=== PATIENT | male | born 1980 | race American Indian/Alaskan Native ===

== ENCOUNTER 2021-09-12 23:47 | Emergency (ER) | payer MEDICARE ==
[2021-09-13] MEDS ORDERED: methylPREDNISolone Sod Succinate 125 MG/2 ML INJ IV ONE (00:07)
[2021-09-13] MEDS ORDERED: ACETAMINOPHEN 325 MG TAB PO ONE (00:07)
[2021-09-13] MEDS ORDERED: ALBUTEROL 2.5 MG/3 ML NEBU IH ONE (00:07)
[2021-09-13] MEDS ORDERED: SODIUM CHLORIDE 0.9% 1000 ML 500 ML IV ONE (00:07)
[2021-09-13] MEDS ORDERED: IPRATROPIUM 0.02% NEBU 2.5 ML IH ONE (00:07)
[2021-09-13] MEDS ORDERED: IBUPROFEN 400 MG TAB PO ONE (00:07)
--- NOTE | 2021-09-13 00:09 | Emergency Department Report ---
ED General Adult HPI - General Chief complaint: Dyspnea/Respdistress Stated complaint: ASTHMA ATTACK Time Seen by Provider: 09/13/21 00:02 Source: patient, EMS ( EMS documentation not available at time of chart dictation ), RN notes reviewed Mode of arrival: Stretcher Limitations: No Limitations - History of Present Illness Initial comments: The patient was evaluated in the emergency department for symptoms described in the history of present illness. He/she was evaluated in the context of the global COVID-19 pandemic, which necessitated consideration that the patient might be at risk for infection with the virus that causes COVID-19. Institutional protocols and algorithms that pertain to the evaluation of patients at risk for COVID-19 are in a state of rapid change based on information released by regulatory bodies including the CDC and federal and state organizations. These policies and algorithms were followed during the patient's care in the emergency department. Please note that these policies, procedures and recommendations changed on a rapid basis. This is a pleasant and cooperative 41-year-old gentleman, who is COVID-19 vac cinated without booster, who occasionally consumes marijuana, who also has a history of long-term reactive airways disease, who has never been intubated, who presents to the department today with a complaint of cough, wheezing, chest wall tightness and shortness of breath. Denies travel, surgery, immobilization, DVT and pulmonary embolism risk factors. Has been using albuterol/nebulizer at home with minimal improvement in symptoms. Received albuterol, Atrovent, Tylenol, Motrin and steroids here in the emergency room, which greatly improved his symptoms. Reports chronic chest wall discomfort with coughing, when he gets his reactive airway disease attacks and exacerbations. -: Gradual, days(s) Consistency: constant Improves with: eating Worsens with: movement - Related Data Previous Rx's Medication Instructions Recorded Last Taken Type ALBUTEROL NEB's [Proventil 0.083% 2.5 mg IH TID PRN #1 box 09/13/21 Unknown Rx NEBS] Acetaminophen [Non-Aspirin Extra 500 mg PO Q6HR PRN #30 tablet 09/13/21 Unknown Rx Strength] Albuterol Mdi (or & Nicu Only) 2 puff IH QID PRN #8.5 gram 09/13/21 Unknown Rx [ProAir HFA Inhaler] Ibuprofen [Motrin] 600 mg PO Q8H PRN #30 tablet 09/13/21 Unknown Rx predniSONE [Deltasone] 2 tab PO QDAY 4 Days #8 tab 09/13/21 Unknown Rx Allergies Allergy/AdvReac Type Severity Reaction Status Date / Time No Known Allergies Allergy Unverified 02/06/19 09:15 ED Review of Systems ROS: Stated complaint: ASTHMA ATTACK Other details as noted in HPI Constitutional: denies: fever, malaise, weakness ENT: congestion Respiratory: cough, shortness of breath, wheezing Cardiovascular: other (Chest wall pain with cough). denies: syncope Gastrointestinal: denies: abdominal pain Genitourinary: denies: dysuria Musculoskeletal: denies: back pain Neurological: denies: weakness ED Past Medical Hx - Past Medical History Hx Asthma: Yes - Social History Smoking Status: Never Smoker - Medications Home Medications: Home Medications Medication Instructions Recorded Confirmed Last Taken Type ALBUTEROL NEB's [Proventil 0.083% 2.5 mg IH TID PRN #1 box 09/13/21 Unknown Rx NEBS] Acetaminophen [Non-Aspirin Extra 500 mg PO Q6HR PRN #30 tablet 09/13/21 Unknown Rx Strength] Albuterol Mdi (or & Nicu Only) 2 puff IH QID PRN #8.5 gram 09/13/21 Unknown Rx [ProAir HFA Inhaler] Ibuprofen [Motrin] 600 mg PO Q8H PRN #30 tablet 09/13/21 Unknown Rx predniSONE [Deltasone] 2 tab PO QDAY 4 Days #8 tab 09/13/21 Unknown Rx ED Physical Exam - General Limitations: No Limitations General appearance: alert, in no apparent distress - Head Head exam: Present: atraumatic, normocephalic - Eye Eye exam: Present: normal appearance, EOMI. Absent: nystagmus - ENT ENT exam: Present: normal exam, normal orophraynx, mucous membranes moist, normal external ear exam - Neck Neck exam: Present: normal inspection, full ROM. Absent: tenderness, meningismus - Respiratory Respiratory exam: Present: wheezes, rhonchi, chest wall tenderness - Cardiovascular Cardiovascular Exam: Present: regular rate, normal rhythm, normal heart sounds. Absent: bradycardia, tachycardia, irregular rhythm, systolic murmur, diastolic murmur, rubs, gallop - GI/Abdominal GI/Abdominal exam: Present: soft. Absent: distended, tenderness, guarding, rebound, rigid, pulsatile mass - Rectal Rectal exam: Present: deferred - Extremities Exam Extremities exam: Present: normal inspection, full ROM, normal capillary refill, other (2+ pulses noted in the bilateral upper and lower extremities. There is no palpable cord. negative Homans sign. Muscular compartments are soft. The pelvis is stable.). Absent: pedal edema, calf tenderness - Back Exam Back exam: Present: normal inspection, full ROM. Absent: tenderness, CVA tenderness (R), CVA tenderness (L), paraspinal tenderness, vertebral tenderness - Neurological Exam Neurological exam: Present: alert, oriented X3, normal gait, other (No facial droop. Tongue midline. Extraocular movements intact bilaterally. Facial sensation intact to light touch in V1, V2, V3 distribution bilaterally. 5 and a 5 strength in 4 extremities. Sensation intact to light touch in 4 extremities.). Absent: motor sensory deficit - Psychiatric Psychiatric exam: Present: normal affect, normal mood - Skin Skin exam: Present: warm, dry, intact, normal color. Absent: rash ED Course Vital Signs 09/13/21 09/13/21 09/13/21 00:03 00:15 00:31 Temperature Pulse Rate 69 59 L Pulse Rate [ Bilateral Throughout] Respiratory 15 19 Rate Respiratory Rate [Bilateral Throughout] Blood Pressure [Right] O2 Sat by Pulse 99 98 100 Oximetry O2 Sat by Pulse Oximetry [ Digit-Finger] 09/13/21 09/13/21 09/13/21 00:45 01:01 01:15 Temperature Pulse Rate 64 88 64 Pulse Rate [ Bilateral Throughout] Respiratory 16 23 20 Rate Respiratory Rate [Bilateral Throughout] Blood Pressure [Right] O2 Sat by Pulse 100 97 100 Oximetry O2 Sat by Pulse Oximetry [ Digit-Finger] 09/13/21 09/13/21 09/13/21 01:21 01:31 01:38 Temperature Pulse Rate 74 70 Pulse Rate [ 96 H Bilateral Throughout] Respiratory 13 16 Rate Respiratory 22 Rate [Bilateral Throughout] Blood Pressure 148/78 [Right] O2 Sat by Pulse 99 98 Oximetry O2 Sat by Pulse Oximetry [ Digit-Finger] 09/13/21 09/13/21 01:47 01:58 Temperature 97.9 F Pulse Rate Pulse Rate [ Bilateral Throughout] Respiratory Rate Respiratory Rate [Bilateral Throughout] Blood Pressure [Right] O2 Sat by Pulse Oximetry O2 Sat by Pulse 99 Oximetry [ Digit-Finger] - Pulse Oximetry Interpretation Digit-Finger Initial Pulse Oximetry Readin O2 Sat by Pulse Oximetry: 99 Actions Taken: none ED Medical Decision Making - Lab Data Vital Signs 09/13/21 09/13/21 09/13/21 00:03 00:15 00:31 Temperature Pulse Rate 69 59 L Pulse Rate [ Bilateral Throughout] Respiratory 15 19 Rate Respiratory Rate [Bilateral Throughout] Blood Pressure [Right] O2 Sat by Pulse 99 98 100 Oximetry 09/13/21 09/13/21 09/13/21 00:45 01:01 01:15 Temperature Pulse Rate 64 88 64 Pulse Rate [ Bilateral Throughout] Respiratory 16 23 20 Rate Respiratory Rate [Bilateral Throughout] Blood Pressure [Right] O2 Sat by Pulse 100 97 100 Oximetry 09/13/21 09/13/21 09/13/21 01:21 01:31 01:38 Temperature Pulse Rate 74 70 Pulse Rate [ 96 H Bilateral Throughout] Respiratory 13 16 Rate Respiratory 22 Rate [Bilateral Throughout] Blood Pressure 148/78 [Right] O2 Sat by Pulse 99 98 Oximetry 09/13/21 01:47 Temperature 97.9 F Pulse Rate Pulse Rate [ Bilateral Throughout] Respiratory Rate Respiratory Rate [Bilateral Throughout] Blood Pressure [Right] O2 Sat by Pulse Oximetry - EKG Data -: EKG Interpreted by Ar EKG shows normal: sinus rhythm Rate: normal - EKG Data When compared to previous EKG there are: previous EKG unavailable (There is no prior EKG available for comparison) 09/13/21 01:57 The EKG is interpreted at 12: 30 6 AM. Sinus rhythm, bradycardia, rate 54 bpm. Normal axis, normal P wave axis, Q waves noted V2, motion artifact, LVH. Abnormal EKG. The EKG is not consistent with a STEMI. - Radiology Data Radiology results: pending, report reviewed, image reviewed CHEST 1 VIEW INDICATION / CLINICAL INFORMATION: Chest wall pain with cough wheezing and shortness. COMPARISON: None available. FINDINGS: SUPPORT DEVICES: None. HEART / MEDIASTINUM: Heart size is within normal limits. Mediastinal contour demonstrates no significant abnormality. LUNGS / PLEURA: No significant pulmonary abnormality. BONES: No significant osseous abnormality. ADDITIONAL FINDINGS: No significant additional findings. IMPRESSION: 1. No active cardiopulmonary disease. Signer Name: Bryce Avery II, MD Signed: 09/12/2021 11:27 PM Workstation Name: [id number] - Medical Decision Making Differential diagnosis, include but not limited to: Costochondritis, bronchitis, pneumonia, asthma, reactive airways disease Assessment and plan: 41-year-old gentleman with known history of reactive airways disease, who is not currently tachycardic, tachypneic or hypoxic, who denies DVT and pulmonary embolism risk factors, who is PERC negative, and low risk by Wells criteria for pulmonary embolism, presenting with costochondritis, and bronchitis/reactive airways disease exacerbation. [place] much improved after albuterol, Atrovent, Tylenol, Motrin, and steroids. On final reassessment, on cell phone, saturating well on room air, in no acute distress, wheezing is improved. Discharged with albuterol, Atrovent, steroids, as needed pain medication, can follow-up with outpatient primary care or pulmonology. Return precautions are reviewed. All questions answered peer Critical care attestation.: If time is entered above; I have spent that time in minutes in the direct care of this critically ill patient, excluding procedure time. ED Disposition Clinical Impression: Chest wall pain Reactive airway disease Qualifiers: Asthma severity: moderate Asthma complication type: with acute exacerbation Disposition: 01 HOME / SELF CARE / HOMELESS Is pt being admited?: No Does the pt Need Aspirin: No Condition: Good Instructions: Costochondritis, Asthma Attack Additional Instructions: Please avoid consumption of alcohol, tobacco, and all smoke products. Follow-up with a primary care doctor or curriculum manager in the next 2 weeks. Use the albuterol and steroids as directed. Please return to the emergency room right away with new pain, worsened pain, migration of pain, projectile vomiting, change in mental status, confusion, inability tolerate liquid feeds, new, worsened or different symptoms not present on the initial emergency room evaluation Referrals: [facility] [Provider Group] - 3-5 Days NANDO GASPAR MD [Staff Physician] - 3-5 Days Forms: Work/School Release Form(ED)
--- NOTE | 2021-09-13 00:32 | XRay Report ---
CHEST 1 VIEW INDICATION / CLINICAL INFORMATION: Chest wall pain with cough wheezing and shortness. COMPARISON: None available. FINDINGS: SUPPORT DEVICES: None. HEART / MEDIASTINUM: Heart size is within normal limits. Mediastinal contour demonstrates no signific ant abnormality. LUNGS / PLEURA: No significant pulmonary abnormality. BONES: No significant osseous abnormality. ADDITIONAL FINDINGS: No significant additional findings. IMPRESSION: 1. No active cardiopulmonary disease. Signer Name: Bryce Avery II, MD Signed: 09/13/2021 12:27 AM Workstation Name: [email or web address]
[2021-09-13 02:31] VITALS: BP 148/78
--- NOTE | 2021-09-13 13:51 | Electrocardiograph Report ---
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
== END 2021-09-13 02:28 | disposition home or self-care (01) ==
LOC: ED 23:47
DX: R07.89 Other chest pain (principal); J45.909 Unspecified asthma, uncomplicated
CPT/HCPCS: 71045; 93005; 94644; 96374; 99284; J2930; J7030

== ENCOUNTER 2021-09-20 01:17 | Emergency (ER) | payer MEDICARE ==
[2021-09-20] MEDS ORDERED: methylPREDNISolone Sod Succinate 125 MG/2 ML INJ IV ONE (05:38)
[2021-09-20] MEDS ORDERED: MAGNESIUM SULFATE 2 GM/50 ML BAG IV ONE (05:38)
[2021-09-20] MEDS ORDERED: IPRATROPIUM 0.02% NEBU 2.5 ML IH ONE (05:38)
[2021-09-20] MEDS ORDERED: ALBUTEROL 2.5 MG/3 ML NEBU IH ONE (05:38)
--- NOTE | 2021-09-20 05:43 | Event Note ---
ED Screening Note Date of service: 09/20/21 Time: 05:43 ED Screening Note: This initial assessment/diagnostic orders/clinical plan/treatment(s) is/are subject to change based on patients health status, clinical progression and re- assessment by fellow clinical providers in the ED. Further treatment and workup at subsequent clinical providers discretion. Patient/guardian urged not to elope from the ED as their condition may be serious if not clinically assessed and managed. Initial orders include: CBC, CMP, chest x-ray, magnesium level. Chest x-ray Solu-Medrol and mag continuous albuterol and ipratropium ordered. Is a 41-year-old male history of asthma here with what appears to be a acute asthma exacerbation. Patient states this feels like previously. He has significant wheezing on exam.
--- NOTE | 2021-09-20 06:00 | XRay Report ---
CHEST 1 VIEW INDICATION / CLINICAL INFORMATION: asthma exacerbation. COMPARISON: None available. FINDINGS: SUPPORT DEVICES: None. HEART / MEDIASTINUM: Heart size is within normal limits. Mediastinal contour demonstrates no signific ant abnormality. LUNGS / PLEURA: Lungs are clear for degree of inspiration and technique utilized. BONES: No significant osseous abnormality. ADDITIONAL FINDINGS: No significant additional findings. IMPRESSION: 1. No active cardiopulmonary disease. Signer Name: Bryce Avery II, MD Signed: 09/20/2021 5:56 AM Workstation Name: [email or web address]
[2021-09-20 06:11] LABS: Basophils % (Auto) 0.8 % (0.0-1.8); Eosinophils % (Auto) 0.1 % (0.0-4.3); Hematocrit 42.4 % (35.5-45.6); Hemoglobin 14.7 gm/dl (11.8-15.2); Lymphocytes # (Auto) 1.7 K/mm3 (1.2-5.4); Lymphocytes % (Auto) 32.9 % (13.4-35.0); Mean Corpuscular HGB Conc 35 % (32-34); Mean Corpuscular Volume 90 fl (84-94); Monocytes # (Auto) 0.5 K/mm3 (0.0-0.8); Monocytes % (Auto) 10.3 % (0.0-7.3); Platelet Count 220 K/mm3 (140-440); Red Blood Count 4.72 M/mm3 (3.65-5.03); Red Cell Distribution Width 13.9 % (13.2-15.2)
[2021-09-20 06:36] LABS: Alanine Aminotransferase 22 units/L (7-56); Albumin 4.9 g/dL (3.9-5); BUN/Creatinine Ratio 16; Blood Urea Nitrogen 16 mg/dL (9-20); Calcium 10.1 mg/dL (8.4-10.2); Hemolysis Index 16
[2021-09-20] MEDS ORDERED: POTASSIUM CHLORIDE ER 20 MEQ TAB PO ONE (06:48)
[2021-09-20 06:49] VITALS: BP 148/93
--- NOTE | 2021-09-20 06:57 | Emergency Department Report ---
ED General Adult HPI - General Chief complaint: Adult Asthma Stated complaint: ASTHMA PUI?: No Time Seen by Provider: 09/20/21 06:26 Source: patient, EMS Mode of arrival: Ambulatory Limitations: No Limitations - History of Present Illness Initial comments: asthma exacerbation , pt denies using inhaler , he ran out, he was seen here recently and was given rx for inhaler and steriods, he said his insurance doesn;t cover , he was also seen in [facility] recently but denies any rx inhalation -: Gradual, days(s) Location: chest Radiation: non-radiation Consistency: constant Improves with: none Worsens with: none Associated Symptoms: cough, shortness of breath. denies: denies other symptoms - Related Data Previous Rx's Medication Instructions Recorded Last Taken Type ALBUTEROL NEB's [Proventil 0.083% 2.5 mg IH TID PRN #1 box 09/13/21 Unknown Rx NEBS] Acetaminophen [Non-Aspirin Extra 500 mg PO Q6HR PRN #30 tablet 09/13/21 Unknown Rx Strength] Albuterol Mdi (or & Nicu Only) 2 puff IH QID PRN #8.5 gram 09/13/21 Unknown Rx [ProAir HFA Inhaler] Ibuprofen [Motrin] 600 mg PO Q8H PRN #30 tablet 09/13/21 Unknown Rx predniSONE [Deltasone] 2 tab PO QDAY 4 Days #8 tab 09/13/21 Unknown Rx Albuterol Mdi (or & Nicu Only) 2 puff IH QID PRN #8.5 gram 09/20/21 Unknown Rx [ProAir HFA Inhaler] methylPREDNISolone [Medrol 4MG 4 mg PO UNK #1 09/20/21 Unknown Rx DOSEPAK (21 tabs)] Allergies Allergy/AdvReac Type Severity Reaction Status Date / Time No Known Allergies Allergy Unverified 02/06/19 09:15 ED Review of Systems ROS: Stated complaint: ASTHMA Other details as noted in HPI Constitutional: denies: chills, fever Eyes: denies: eye pain, eye discharge, vision change ENT: denies: ear pain, throat pain Respiratory: denies: cough, shortness of breath, wheezing Cardiovascular: denies: chest pain, palpitations Endocrine: no symptoms reported Gastrointestinal: denies: abdominal pain, nausea, diarrhea Genitourinary: denies: urgency, dysuria Musculoskeletal: denies: back pain, joint swelling, arthralgia Skin: denies: rash, lesions Neurological: denies: headache, weakness, paresthesias Psychiatric: denies: anxiety, depression Hematological/Lymphatic: denies: easy bleeding, easy bruising ED Past Medical Hx - Past Medical History Previous Medical History?: No Hx Hypertension: No Hx Asthma: Yes - Social History Smoking Status: Unknown if ever smoked - Medications Home Medications: Home Medications Medication Instructions Recorded Confirmed Last Taken Type ALBUTEROL NEB's [Proventil 0.083% 2.5 mg IH TID PRN #1 box 09/13/21 Unknown Rx NEBS] Acetaminophen [Non-Aspirin Extra 500 mg PO Q6HR PRN #30 tablet 09/13/21 Unknown Rx Strength] Albuterol Mdi (or & Nicu Only) 2 puff IH QID PRN #8.5 gram 09/13/21 Unknown Rx [ProAir HFA Inhaler] Ibuprofen [Motrin] 600 mg PO Q8H PRN #30 tablet 09/13/21 Unknown Rx predniSONE [Deltasone] 2 tab PO QDAY 4 Days #8 tab 09/13/21 Unknown Rx Albuterol Mdi (or & Nicu Only) 2 puff IH QID PRN #8.5 gram 09/20/21 Unknown Rx [ProAir HFA Inhaler] methylPREDNISolone [Medrol 4MG 4 mg PO UNK #1 09/20/21 Unknown Rx DOSEPAK (21 tabs)] ED Physical Exam - General Limitations: No Limitations General appearance: alert, in no apparent distress - Head Head exam: Present: atraumatic, normocephalic - Eye Eye exam: Present: normal appearance - ENT ENT exam: Present: mucous membranes moist - Neck Neck exam: Present: normal inspection - Respiratory Respiratory exam: Present: normal lung sounds bilaterally, wheezes. Absent: respiratory distress - Cardiovascular Cardiovascular Exam: Present: regular rate, normal rhythm. Absent: systolic murmur, diastolic murmur, rubs, gallop - GI/Abdominal GI/Abdominal exam: Present: soft, normal bowel sounds - Rectal Rectal exam: Present: deferred - Extremities Exam Extremities exam: Present: normal inspection - Back Exam Back exam: Present: normal inspection - Neurological Exam Neurological exam: Present: alert, oriented X3 - Psychiatric Psychiatric exam: Present: normal affect, normal mood - Skin Skin exam: Present: warm, dry, intact, normal color. Absent: rash ED Course Vital Signs 09/20/21 09/20/21 09/20/21 01:20 05:42 05:46 Temperature 98.8 F Pulse Rate 70 77 84 Pulse Rate [ Anterior Bilateral Throughout] Respiratory 16 22 18 Rate Respiratory Rate [Anterior Bilateral Throughout] Blood Pressure 171/108 Blood Pressure 150/90 [Right] O2 Sat by Pulse 99 97 92 Oximetry 09/20/21 09/20/21 09/20/21 05:50 05:56 06:00 Temperature Pulse Rate 69 Pulse Rate [ 69 Anterior Bilateral Throughout] Respiratory 26 H 18 Rate Respiratory 20 Rate [Anterior Bilateral Throughout] Blood Pressure 171/108 Blood Pressure [Right] O2 Sat by Pulse 92 100 Oximetry 09/20/21 09/20/21 09/20/21 06:16 06:30 06:46 Temperature Pulse Rate 61 65 64 Pulse Rate [ Anterior Bilateral Throughout] Respiratory 17 22 16 Rate Respiratory Rate [Anterior Bilateral Throughout] Blood Pressure 153/88 153/88 148/93 Blood Pressure [Right] O2 Sat by Pulse 99 100 97 Oximetry ED Medical Decision Making - Lab Data Result diagrams: 09/20/21 05:53 09/20/21 05:53 - EKG Data -: EKG Interpreted by Me EKG shows normal: sinus rhythm Rate: normal - EKG Data When compared to previous EKG there are: no significant change Interpretation: LVH - Radiology Data Radiology results: report reviewed, image reviewed - Medical Decision Making pt was seen earlier by dr andres meds were given by her, vss , no distress, o2 sat 99-100 on RA , wheezinig imrpoved, pt claims he didn;t get rx because it is not convered by his insurance, as well as streiods, i suspect a non compliance issue , will refill him again Critical care attestation.: If time is entered above; I have spent that time in minutes in the direct care of this critically ill patient, excluding procedure time. ED Disposition Clinical Impression: Asthma exacerbation, Non compliance with medical treatment Disposition: HOME / SELF CARE / HOMELESS Is pt being admited?: No Does the pt Need Aspirin: No Condition: Stable Instructions: Asthma, Adult, Asthma Attack Prevention, Adult
--- NOTE | 2021-09-20 10:08 | Electrocardiograph Report ---
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
== END 2021-09-20 07:55 | disposition home or self-care (01) ==
LOC: ED 01:17
DX: J45.901 Unspecified asthma with (acute) exacerbation (principal)
CPT/HCPCS: 36415; 71045; 80053; 83735; 84484; 85025; 93005; 94640; 96365; 96375; 99284; J2930; J3475; 94644